=== PATIENT | female | born 1990 | race Caucasian/White ===

== ENCOUNTER 2019-12-17 19:20 | Emergency (ER) | payer OTHER ==
[2019-12-17] MEDS ORDERED: IBUPROFEN 600 MG TABLET (FP) PO ONE (19:29)
--- NOTE | 2019-12-17 19:29 | PDOC ---
Rapid Medical Evaluation Time Seen by Provider: 12/17/19 19:27 Medical Evaluation: 12/17/19 19:27 CC: 4 days of fever, bodyaches, sore throat, headache PE: OP- mildly erythematous. Orders: Motrin Patient will proceed to ED for further evaluation. Discharge Disposition - Diagnosis Influenza-like illness - Referrals - Patient Instructions - Post Discharge Activity
[2019-12-17 19:30] VITALS: BP 136/90; PULSE 106; TEMP 99; BMI 29.2
[2019-12-17] MEDS ORDERED: KETOROLAC TROMETHAMINE 30 MG/1 ML VIAL IM ONE (19:51)
[2019-12-17] MEDS ORDERED: KETOROLAC TROMETHAMINE 30 MG/1 ML VIAL ONE (19:56)
--- NOTE | 2019-12-17 19:57 | PDOC ---
History of Present Illness - General Chief Complaint: Cold Symptoms Stated Complaint: COLD SYMPTOMS Time Seen by Provider: 12/17/19 19:27 History Source: Patient Exam Limitations: No Limitations Past History - Past Medical History Allergies/Adverse Reactions: Allergies Allergy/AdvReac Type Severity Reaction Status Date / Time No Known Allergies Allergy Verified 12/17/19 19:30 COPD: No - Immunization History Immunization Up to Date: Yes - Psycho Social/Smoking Cessation Hx Smoking History: Never smoked Have you smoked in the past 12 months: No Information on smoking cessation initiated: No Hx Alcohol Use: No Drug/Substance Use Hx: No *Physical Exam - Vital Signs Last Vital Signs Temp Pulse Resp BP Pulse Ox 99.0 F 106 H 17 136/90 98 12/17/19 19:25 12/17/19 19:25 12/17/19 19:25 12/17/19 19:25 12/17/19 19:25 - Physical Exam General Appearance: No: Apparent Distress HEENT: positive: Normal Voice, TMs Normal, Pharyngeal Erythema (mild), Nasal Congestion. negative: Muffled/Hoarse voice, Tonsillar Exudate, Tonsillar Erythema, Rhinorrhea, Sinus Tenderness Respiratory/Chest: positive: Lungs Clear, Normal Breath Sounds. negative: Respiratory Distress Cardiovascular: positive: Regular Rhythm, Regular Rate, S1, S2. negative: Murmur Gastrointestinal/Abdominal: positive: Soft. negative: Tender Neurologic: positive: Alert Medical Decision Making - Medical Decision Making 29 y/o F with no sig pmh presents with fever x 4 days along with rhinorrhea, congestion, body aches, chills and VANEGAS. Last took Tylenol at 2 PM. Denies recent travel. +sick contacts at home (states nephew got sick first). Denies sob, cp, abd pain, n/v/d, urinary sxs. Did not get flu vaccine this year Likely this is viral URI (possible flu) However, patient is past the 48 hr window for treatment Will give IM toradol for now 12/17/19 19:53 Discharge - Discharge Information Problems reviewed: Yes Clinical Impression/Diagnosis: Viral URI Condition: Stable Disposition: HOME - Admission No - Additional Discharge Information Prescription Drug Monitoring Program (I-STOP) results: I-STOP not reviewed - Follow up/Referral - Patient Discharge Instructions Patient Printed Discharge Instructions: DI for Viral Upper Respiratory Infection -- Adult Additional Instructions: Thank you for choosing [facility]. It was a pleasure taking care of you. Recommend rest and hydration (at least 2-3L of water daily) Take Tylenol every 4 and Motrin every 6 hours as needed for fever You may do salt water gargles for throat discomfort Follow-up with doctor in 3 days Return to the Emergency Department if your symptoms worsen or persist or have other concerning symptoms. - Post Discharge Activity
== END 2019-12-17 20:29 | disposition home or self-care (01) ==
LOC: JERFT 19:20
DX: J06.9 Acute upper respiratory infection, unspecified (principal); B97.89 Other viral agents as the cause of diseases classified elsewhere
CPT/HCPCS: 99281-25